=== PATIENT | male | born 1940 | race Caucasian/White ===

== ENCOUNTER 2023-01-27 21:08 | Inpatient (IN) | payer MEDICARE ==
[2023-01-27 22:44] LABS: #Eosinphils 0.3 thou/uL (0.0-0.7); #Monocytes 0.7 thou/uL (0.11-0.59); #Neutrophils 4.5 thou/uL (1.40-6.50); %Basophils 0.6 % (0.0-1.0); %Eosinophils 3.6 % (0.0-10.0); %Lymphocytes 20.7 % (21.0-51.0); %Monocytes 9.5 % (0.0-10.0); %Neutrophils 65.2 % (42.0-75.0); Hematocrit 40.4 % (42.0-52.0); Hemoglobin 12.9 g/dL (14.0-18.0); Mean Corpuscular HGB CONC 31.9 g/dL (32.0-36.0); Mean Corpuscular Hemoglobin 30.1 pg (27.0-31.0); Mean Corpuscular Volume 94.2 fl (78.0-98.0); Mean Platelet Volume 10.8 fL (7.4-10.4); Platelet Count 213 10x3/uL (130-400); RBC Distribution Width 12.9 % (11.5-14.5); Red Blood Cell (RBC) Count 4.29 mill/uL (4.70-6.10); White Blood Cell (WBC) Count 6.9 10x3/uL (4.8-10.8)
[2023-01-27 22:57] LABS: ALT (SGPT) 9 U/L (8-55); AST (SGOT) 11 U/L (5-34); Acetaminophen Less than 10 mcg/mL (10.0-30.0); Alcohol Less than 10.0 mg/dL (Less than 10); Alkaline Phosphatase 62 U/L (40-110); Anion Gap 12 mmol/L (10-20); BUN (Urea Nitrogen) 17 mg/dL (8.4-25.7); Bilirubin, Total 0.2 mg/dL (0.2-1.2); Calc. Creatinine Clearance 0 mL/min (70-130); Calcium 8.8 mg/dL (7.8-10.44); Carbon Dioxide 22 mmol/L (23-31); Chloride 112 mmol/L (98-107); Estimated GFR 58; Globulin 2.4 g/dL (2.4-3.5); Glucose 112 mg/dL (83-110); Potassium 3.6 mmol/L (3.5-5.1); Protein, Total 6.4 g/dL (5.8-8.1); Salicylate Less than 8.0 mg/dL (15.0-30.0); Sodium 142 mmol/L (136-145)
[2023-01-27 23:06] LABS: Bacteria/HPF None Seen HPF (None Seen); Bilirubin Negative (Negative); Blood, Urine 1+ (Negative); CAUTI Indications for Culture Alt mental st,lethar; Clarity Clear (Clear); Glucose, Urine (Dipstick) Normal (Negative); Ketone, Urine Negative (Negative); Leukocyte Negative Leu/uL (Negative); Nitrite Negative (Negative); Protein, Urine (Dipstick) 20 mg/dL (Neg-Trace); RBC/HPF 21-50 HPF (0-3); Specific Gravity, Urine 1.021 (1.002-1.036); Squamous Epithelial None Seen HPF (0-3); Urobilinogen Normal mg/dL (Less than 2); WBC/HPF 0-3 HPF (0-3)
[2023-01-27 23:07] LABS: Troponin I 0.302 ng/mL (< 0.028)
[2023-01-27 23:08] LABS: Urine Culture Reflex No No
[2023-01-27 23:10] LABS: Amphetamine Not Detected (NotDetected); Barbiturates Screen Not Detected (NotDetected); Benzodiazepine Screen Detected (NotDetected); Cocaine Metabolite Screen Not Detected (NotDetected); Methadone Not Detected (NotDetected); Methamphetamine Not Detected (NotDetected); Opiate Screen Not Detected (NotDetected); Oxycodone Screen Not Detected (NotDetected); Phencyclidine (PCP) Not Detected (NotDetected); THC/Cannabinoid Screen Not Detected (NotDetected); Tricyclic Screen Detected (NotDetected)
[2023-01-28] MEDS ORDERED: Aspirin Chewable 81 MG TAB ONE (00:15)
[2023-01-28] MEDS ORDERED: Senokot S 8.6-50 MG TAB PO PRN (01:22)
[2023-01-28] MEDS ORDERED: Acetaminophen 325 MG TAB PO PRN (01:22)
[2023-01-28] MEDS ORDERED: Ondansetron ODT 4 MG TAB PO PRN (01:22)
[2023-01-28 02:11] LABS: Troponin I 0.302 ng/mL (< 0.028)
[2023-01-28 05:10] VITALS: BMI 32.5
[2023-01-28 09:00] LABS: Anion Gap 13 mmol/L (10-20); BUN (Urea Nitrogen) 15 mg/dL (8.4-25.7); Calc. Creatinine Clearance 78 mL/min (70-130); Calcium 8.7 mg/dL (7.8-10.44); Carbon Dioxide 23 mmol/L (23-31); Chloride 113 mmol/L (98-107); Estimated GFR 67; Glucose 91 mg/dL (83-110); Potassium 3.8 mmol/L (3.5-5.1); Sodium 145 mmol/L (136-145)
[2023-01-28 09:14] LABS: Troponin I 0.334 ng/mL (< 0.028)
[2023-01-28 12:39] LABS: Critical Call Chem Troponin I RESULT DECREASING; Troponin I 0.309 ng/mL (< 0.028)
[2023-01-28] MEDS ORDERED: Melatonin 3 MG TAB PO PRN (19:39)
[2023-01-28] MEDS: ALPRAZolam 0.25 MG TAB PO SCH (20:17)
[2023-01-28] MEDS: QUEtiapine 100 MG TAB PO SCH (20:18)
[2023-01-28] MEDS: busPIRone HCl 10 MG TAB PO SCH (20:18)
[2023-01-28] MEDS ORDERED: Atorvastatin Calcium 20 MG TAB PO SCH (21:00)
[2023-01-29] MEDS ORDERED: Sertraline 25 MG TAB PO SCH (09:00)
[2023-01-29] MEDS ORDERED: B12 PO SCH (09:00)
[2023-01-29] MEDS ORDERED: CALCIU PO SCH (09:00)
[2023-01-29] MEDS ORDERED: [UNRECOGNIZED DRUG - OTHER] PO SCH (09:00)
[2023-01-29] MEDS ORDERED: Aspirin 81 mg Enteric Coated Tablet PO SCH (09:00)
[2023-01-29] MEDS ORDERED: IRON PO SCH (09:00)
[2023-01-29] MEDS: ALPRAZolam 0.25 MG TAB PO SCH ×2 (10:42→18:41)
[2023-01-29] MEDS: busPIRone HCl 10 MG TAB PO SCH ×2 (10:42→18:41)
[2023-01-29] MEDS: Carvedilol 3.125 MG TAB PO SCH ×2 (10:42→18:41)
[2023-01-29] MEDS: QUEtiapine 100 MG TAB PO SCH (10:42)
[2023-01-29 10:56] LABS: Cardiac Risk 3.4 (Less than 4.5)
[2023-01-29 12:12] VITALS: TEMP 98.4
[2023-01-29 15:46] VITALS: BP 135/78
[2023-01-31] MEDS ORDERED: FLU VACC QS2023(65UP)/MF59C/PF 60 MCG/0.5 ML SYRINGE IM ONE (09:00)
== END 2023-01-29 19:22 | DRG 281 ==
LOC: ERS 21:08 → 2SE 01-28 00:26 → OBSVTOIN 01-28 00:26
PROVIDERS: ADMIT Student in an Organized Health Care Education/Training Program; ATTEND Internal Medicine Critical Care Medicine
DX: I21.4 Non-ST elevation (NSTEMI) myocardial infarction (principal); I47.29 Other ventricular tachycardia; F07.81 Postconcussional syndrome; F03.90 Unspecified dementia, unspecified severity, without behavioral disturbance, psychotic disturbance, mood disturbance, and anxiety; Z66 Do not resuscitate; E78.00 Pure hypercholesterolemia, unspecified; Z88.8 Allergy status to other drugs, medicaments and biological substances; Z79.82 Long term (current) use of aspirin; Z79.899 Other long term (current) drug therapy
CPT/HCPCS: 36415; 51701; 70450; 71045; 71250; 80048; 80053; 80061; 80306; 80307; 81001; 82140; 84443; 84484; 85025; 93005; 93306; 94760

== ENCOUNTER 2023-06-09 15:09 | Emergency (ER) | payer MEDICARE ==
[2023-06-09 16:59] LABS: #Eosinphils 0.2 thou/uL (0.0-0.7); #Monocytes 0.6 thou/uL (0.11-0.59); #Neutrophils 5.8 thou/uL (1.40-6.50); %Basophils 0.5 % (0.0-1.0); %Lymphocytes 15.5 % (21.0-51.0); %Monocytes 7.6 % (0.0-10.0); %Neutrophils 72.9 % (42.0-75.0); Hematocrit 37.7 % (42.0-52.0); Hemoglobin 12.1 g/dL (14.0-18.0); Mean Corpuscular HGB CONC 32.1 g/dL (32.0-36.0); Mean Corpuscular Hemoglobin 29.7 pg (27.0-31.0); Mean Corpuscular Volume 92.6 fl (78.0-98.0); Mean Platelet Volume 10.5 fL (7.4-10.4); Platelet Count 220 10x3/uL (130-400); RBC Distribution Width 13.2 % (11.5-14.5); Red Blood Cell (RBC) Count 4.07 mill/uL (4.70-6.10)
[2023-06-09 17:29] LABS: Acetaminophen Less than 10 mcg/mL (10.0-30.0); Alcohol Less than 10.0 mg/dL (Less than 10); Salicylate Less than 8.0 mg/dL (15.0-30.0)
[2023-06-09 17:30] LABS: ALT (SGPT) 12 U/L (8-55); AST (SGOT) 14 U/L (5-34); Albumin 3.9 g/dL (3.4-4.8); Alkaline Phosphatase 70 U/L (40-110); Anion Gap 13 mmol/L (10-20); BUN (Urea Nitrogen) 21 mg/dL (8.4-25.7); Bilirubin, Total 0.3 mg/dL (0.2-1.2); Calc. Creatinine Clearance 0 mL/min (70-130); Calcium 8.7 mg/dL (7.8-10.44); Carbon Dioxide 25 mmol/L (23-31); Chloride 110 mmol/L (98-107); Estimated GFR 61; Globulin 2.6 g/dL (2.4-3.5); Glucose 96 mg/dL (83-110); Potassium 4.2 mmol/L (3.5-5.1); Protein, Total 6.5 g/dL (5.8-8.1); Sodium 144 mmol/L (136-145)
== END 2023-06-09 20:31 ==
LOC: ERS 15:09
DX: R45.1 Restlessness and agitation (principal); R29.710 NIHSS score 10; Z86.59 Personal history of other mental and behavioral disorders; Z55.6 Problems related to health literacy
CPT/HCPCS: 36415; 70450; 80053; 80307; 85025; 93005